=== PATIENT | male | born 1970 | race Caucasian/White ===

== ENCOUNTER 2021-10-07 10:58 | Emergency (ER) | payer OTHER ==
[~2021-10-07] VITALS: Ht 185.4 cm; Wt 81.6 kg
[2021-10-07 11:06] VITALS: BP 142/93
[2021-10-07 11:30] VITALS: BP 131/90
[2021-10-07 12:00] VITALS: BP 133/90
[2021-10-07 12:30] VITALS: BP 151/99
[2021-10-07] MEDS ORDERED: NAPROXEN500 MG PO (12:40)
[2021-10-07] MEDS ORDERED: TRAMADOL HCL50 MG PO (12:40)
[2021-10-07 12:58] VITALS: BP 151/99
== END 2021-10-07 13:12 | disposition home or self-care (01) | DRG 563 ==
LOC: ED 10:58
DX: S66.912A Strain of unspecified muscle, fascia and tendon at wrist and hand level, left hand, initial encounter (principal); S66.911A Strain of unspecified muscle, fascia and tendon at wrist and hand level, right hand, initial encounter; V85.0XXA Driver of special construction vehicle injured in traffic accident, initial encounter; Y99.0 Civilian activity done for income or pay